=== PATIENT | female | born 1955 | race Caucasian/White ===

== ENCOUNTER 2022-06-24 13:12 | Inpatient (IN) | payer MEDICARE, OTHER ==
[2022-06-24 13:42] LABS: Actual Bicarbonate (HCO3v) 26 mEq/L (22-28); Base Excess 2.8 mEq/L (-2.0 to +3.0); Calcium, Ionized (venous) 0.86 mmol/L (1.16-1.32); Chloride (VBG) 93 mmol/L (98-106); Hemoglobin (Hb) 16.6 g/dL (11.7-16.1); Sodium 128.7 mmol/L (133-146); pH (venous) 7.48 (7.32-7.43)
[2022-06-24 13:45] LABS: #Lymphocytes 0.4 thou/uL (1.20-3.40); #Monocytes 0.2 thou/uL (0.11-0.59); #Neutrophils 3.3 thou/uL (1.40-6.50); %Eosinophils 0.2 % (0.0-10.0); %Lymphocytes 11.1 % (21.0-51.0); %Monocytes 5.7 % (0.0-10.0); Hemoglobin 15.8 g/dL (12.0-16.0); Mean Corpuscular HGB CONC 33.8 g/dL (32.0-36.0); Mean Corpuscular Hemoglobin 31.2 pg (27.0-31.0); Mean Corpuscular Volume 92.2 fl (78.0-98.0); Platelet Count 450 10x3/uL (130-400); RBC Distribution Width 11.9 % (11.5-14.5); Red Blood Cell (RBC) Count 5.06 mill/uL (4.20-5.40); White Blood Cell (WBC) Count 3.9 10x3/uL (4.8-10.8)
[2022-06-24 13:45] LABS: Potassium (VBG) 2.48 mmol/L (3.70-5.30)
[2022-06-24 13:48] LABS: BHCG - Serum Negative (NEGATIVE); Pregs Control Background? CLEAR/WHITE (CLR/WHITE); Pregs Control Bar Appear? YES (CONTROL BAR)
[2022-06-24 14:04] LABS: ALT (SGPT) 15 U/L (8-55); AST (SGOT) 19 U/L (5-34); Albumin 3.5 g/dL (3.4-4.8); Alkaline Phosphatase 92 U/L (40-110); Anion Gap 18 mmol/L (10-20); BUN (Urea Nitrogen) 6 mg/dL (9.8-20.1); Bilirubin, Total 0.4 mg/dL (0.2-1.2); Calc. Creatinine Clearance 0 mL/min (70-130); Calcium 8.7 mg/dL (7.8-10.44); Carbon Dioxide 26 mmol/L (23-31); Chloride 91 mmol/L (98-107); Estimated GFR 37; Glucose 182 mg/dL (80-115); Lipase 31 U/L (8-78); Magnesium 2.1 mg/dL (1.6-2.6); Protein, Total 6.5 g/dL (5.8-8.1); Sodium 132 mmol/L (136-145)
[2022-06-24 14:29] LABS: Potassium 2.5 mmol/L (3.5-5.1)
[2022-06-24] MEDS ORDERED: CALCIUM GLUC 1 GM/NS 50 ML BAG ONE (14:29)
[2022-06-24] MEDS ORDERED: Potassium Chloride 20 MEQ TAB ONE (14:29)
[2022-06-24] MEDS ORDERED: Morphine 4 MG/ML VIAL ONE (14:29)
[2022-06-24] MEDS ORDERED: Magnesium 2 GM/50 ML BAG (IN WATER) ONE (14:29)
[2022-06-24] MEDS ORDERED: Ondansetron PF 4 MG/2 ML Vial ONE (14:29)
[2022-06-24] MEDS ORDERED: Piperacillin/Tazobactam 4.5 GM VIAL ONE (14:29)
[2022-06-24] MEDS ORDERED: Acetaminophen 500 MG TAB ONE (14:29)
[2022-06-24] MEDS ORDERED: Potassium Chloride 20 MEQ/100 ML PREMIX BAG ONE (14:29)
[2022-06-24] MEDS ORDERED: Calcium Gluc 4.6 MEQ/10 ML (100 MG/ML) ONE (14:31)
[2022-06-24] MEDS ORDERED: Fentanyl 250 MCG/5 ML VIAL ONE (15:01)
[2022-06-24] MEDS ORDERED: Midazolam HCl 2 mg/2 ml Vial ONE (15:01)
[2022-06-24] MEDS ORDERED: Lidocaine 1% MPF 2 ML VIAL ONE (15:25)
[2022-06-24] MEDS ORDERED: Lidocaine 1% PF 5 ML VIAL ONE (15:40)
[2022-06-24] MEDS ORDERED: Rocuronium Bromide 10 MG/ML (10ML VIAL) ONE (15:40)
[2022-06-24] MEDS ORDERED: PHENYLEPHRINE-NS 100 MCG/ML 10 ML SYRINGE ONE ×2 (15:40→17:27)
[2022-06-24] MEDS ORDERED: Calcium Chloride 1 GM/10 ML Abboject SYRINGE ONE ×2 (15:40→17:24)
[2022-06-24] MEDS ORDERED: Albumin 5% 500 ML ONE (15:41)
[2022-06-24] MEDS ORDERED: Sevoflurane 250 ML INH ANEST BOTTLE ONE ×2 (15:48→21:51)
[2022-06-24] MEDS ORDERED: SUGAMMADEX SODIUM 200 MG/2 ML VIAL ONE (15:48)
[2022-06-24] MEDS ORDERED: Sodium Bicarb 50 MEQ/50 ML VIAL ONE (16:00)
[2022-06-24] MEDS ORDERED: Phenylephrine 10 MG/ML VIAL ONE (17:27)
[2022-06-24] MEDS ORDERED: NOREPINEPHRINE 8 MG/250 ML-D5W 250 ML ONE (18:18)
[2022-06-24 18:36] LABS: Base Excess (BEa) -3.9 mEq/L (-2.0 to +3.0); CO2 Tension 37.1 mmHg (35.0-45.0); Calcium, Ionized (arterial) 1.26 mmol/L (1.12-1.30); Carboxyhemoglobin (COHb) 1.1 gm% (0.0-3.0); Hemoglobin (Hb) 8.8 g/dL (12.0-16.0); O2 Tension (PaO2), arterial 78.7 mmHg (> 80.0); Potassium - ABG Lab 2.77 mmol/L (3.70-5.30); pH, Arterial 7.37 (7.35-7.45)
[2022-06-24 18:39] LABS: ALV-art Gradient 302.725 mmHg (0-20); Puncture Site LINE
[2022-06-24] MEDS ORDERED: Dextrose 5% in Water 1,000 ML IV PRN (18:40)
[2022-06-24] MEDS ORDERED: Dextrose 50% Abboject 50 ML SYRINGE SLOW IVP PRN (18:40)
[2022-06-24] MEDS ORDERED: Ipratropium/Albuterol 3 ML NEB NEB PRN (18:40)
[2022-06-24] MEDS ORDERED: Ondansetron ODT 4 MG TAB PO PRN (18:40)
[2022-06-24] MEDS ORDERED: TETANUS, DIPHTHERIA TOX,ADULT (TDVAX) 0.5 ML VIAL IM ONE (18:40)
[2022-06-24] MEDS ORDERED: HumaLOG 300 UNITS/3 ML VIAL SC PRN (18:40)
[2022-06-24] MEDS ORDERED: Ondansetron PF 4 MG/2 ML Vial IVP PRN (18:40)
[2022-06-24] MEDS ORDERED: Promethazine HCl 25 MG/ML VIAL IM PRN (18:40)
[2022-06-24] MEDS ORDERED: Lorazepam 2 MG/ML VIAL SLOW IVP PRN (18:45)
[2022-06-24] MEDS ORDERED: DISCONTINUE PREVIOUS NARCOTIC PAIN MEDICATIONS AND BENZODIAZEPINES FS SCH (18:45)
[2022-06-24] MEDS ORDERED: Propofol 1,000 MG/100 ML VIAL IV PRN (18:45)
[2022-06-24] MEDS ORDERED: Morphine 2 MG/ML VIAL SLOW IVP PRN (18:45)
[2022-06-24] MEDS ORDERED: Propofol BOLUS 1,000 MG/100 ML VIAL IV PRN (18:45)
[2022-06-24] MEDS ORDERED: Fentanyl BOLUS 250 ML IVPB PRN (18:45)
[2022-06-24] MEDS: Fentanyl CADD 100 ML IV SCH (18:47)
[2022-06-24] MEDS: Sodium Chloride 0.9% 1,000 ML IV SCH (18:47)
[2022-06-24] MEDS: NOREPINEPHRINE 8 MG/250 ML-D5W 250 ML IVPB SCH (18:48)
[2022-06-24] MEDS ORDERED: Piperacillin/Tazobactam 3.375 GM in Sodium Chloride 0.9% 100 ML IVPB SCH (19:00)
[2022-06-24 19:03] LABS: Lactic Acid 6.4 mmol/L (0.5-2.2)
[2022-06-24] MEDS ORDERED: Potassium Chloride 40 MEQ in Premix Bag 1 BAG IVPB SCH (20:15)
[2022-06-24] MEDS ORDERED: Famotidine/PF 20 mg/2ml Vial SLOW IVP SCH (21:00)
[2022-06-24] MEDS ORDERED: Sodium Chloride 0.9% 500 ML IV SCH (21:30)
[2022-06-24] MEDS ORDERED: Sterile Water 10 ML ONE (21:51)
[2022-06-24] MEDS ORDERED: Sodium Chloride 0.9% 500 ML IV PRN (22:00)
[2022-06-24 23:44] LABS: Lactic Acid 3.4 mmol/L (0.5-2.2)
[2022-06-25] MEDS: NOREPINEPHRINE 8 MG/250 ML-D5W 250 ML IVPB SCH ×7 (00:03→20:42)
[2022-06-25] MEDS: Piperacillin/Tazobactam 3.375 GM in Sodium Chloride 0.9% 100 ML IVPB SCH ×4 (00:03→23:03)
[2022-06-25 00:32] LABS: Hemoglobin 9.3 g/dL (12.0-16.0); Mean Corpuscular HGB CONC 33.2 g/dL (32.0-36.0); Mean Corpuscular Hemoglobin 29.3 pg (27.0-31.0); Mean Corpuscular Volume 88.2 fl (78.0-98.0); Mean Platelet Volume 8.3 fL (7.4-10.4); Platelet Count 211 10x3/uL (130-400); RBC Distribution Width 16.9 % (11.5-14.5); Red Blood Cell (RBC) Count 3.16 mill/uL (4.20-5.40); White Blood Cell (WBC) Count 3.6 10x3/uL (4.8-10.8)
[2022-06-25 00:55] LABS: Anion Gap 9 mmol/L (10-20); BUN (Urea Nitrogen) 10 mg/dL (9.8-20.1); Calc. Creatinine Clearance 61 mL/min (70-130); Carbon Dioxide 19 mmol/L (23-31); Chloride 111 mmol/L (98-107); Potassium 3.4 mmol/L (3.5-5.1); Sodium 136 mmol/L (136-145)
[2022-06-25 00:56] LABS: Calcium 7.5 mg/dL (7.8-10.44); Estimated GFR 53; Glucose 213 mg/dL (80-115); Magnesium 1.3 mg/dL (1.6-2.6); Phosphorus 1.6 mg/dL (2.3-4.7)
[2022-06-25] MEDS ORDERED: Electrolyte Replacement Protocol 1 EACH FS SCH (02:15)
[2022-06-25] MEDS: Lactated Ringer's 1,000 ML IV SCH ×2 (02:22→09:00)
[2022-06-25] MEDS ORDERED: Magnesium Sulfate In Water 4 GM in Premix Bag 1 BAG IVPB SCH (03:00)
[2022-06-25] MEDS ORDERED: Potassium Phosphate 15 MMOL in Sodium Chloride 0.9% 100 ML IVPB SCH (04:00)
[2022-06-25] MEDS ORDERED: Lactated Ringer's 500 ML IV SCH ×2 (04:30→06:00)
[2022-06-25] MEDS ORDERED: Potassium Chloride 20 MEQ in Premix Bag 1 BAG IVPB SCH (05:00)
[2022-06-25 05:06] LABS: Hemoglobin 9.6 g/dL (12.0-16.0); Mean Corpuscular HGB CONC 33.1 g/dL (32.0-36.0); Mean Corpuscular Hemoglobin 29.5 pg (27.0-31.0); Mean Corpuscular Volume 89.3 fl (78.0-98.0); Mean Platelet Volume 8.3 fL (7.4-10.4); Platelet Count 256 10x3/uL (130-400); RBC Distribution Width 16.7 % (11.5-14.5); Red Blood Cell (RBC) Count 3.25 mill/uL (4.20-5.40); White Blood Cell (WBC) Count 5.9 10x3/uL (4.8-10.8)
[2022-06-25 05:15] LABS: Anion Gap 11 mmol/L (10-20); BUN (Urea Nitrogen) 10 mg/dL (9.8-20.1); Calc. Creatinine Clearance 59 mL/min (70-130); Calcium 7.4 mg/dL (7.8-10.44); Carbon Dioxide 17 mmol/L (23-31); Chloride 110 mmol/L (98-107); Estimated GFR 51; Glucose 138 mg/dL (80-115); Potassium 3.4 mmol/L (3.5-5.1); Sodium 135 mmol/L (136-145)
[2022-06-25 06:08] LABS: Band 56 % (5-11); Lymphocytes 18 % (21-51); MDiff Complete? YES; Metamyelocyte 15 % (0-0); Monocytes 4 % (0-10); Neutrophil 7 % (42-75); Reflex for Review?? YES; Vacuoles SLIGHT
[2022-06-25] MEDS: Albumin 25% 25 GM/100 ML BOT IVPB SCH ×4 (06:24→23:03)
[2022-06-25 07:37] LABS: SARS-CoV-2 NAA Rapid Test Not Detected (NotDetected)
[2022-06-25 07:51] LABS: Actual Bicarbonate (HCO3a) 19.7 mEq/L (22-28); Base Excess (BEa) -5.7 mEq/L (-2.0 to +3.0); CO2 Tension 37.7 mmHg (35.0-45.0); Calcium, Ionized (arterial) 1.17 mmol/L (1.12-1.30); Carboxyhemoglobin (COHb) 0.1 gm% (0.0-3.0); Hemoglobin (Hb) 9.7 g/dL (12.0-16.0); Potassium - ABG Lab 3.67 mmol/L (3.70-5.30); pH, Arterial 7.34 (7.35-7.45)
[2022-06-25 07:53] LABS: Puncture Site Arterial Line
[2022-06-25 07:54] LABS: ALV-art Gradient 176.075 mmHg (0-20)
[2022-06-25] MEDS ORDERED: Midazolam In 0.9 % NaCl/PF 100 ML IVPB SCH (08:15)
[2022-06-25] MEDS: FLU VACC QS2022-23(65YR UP)/PF 240 MCG/0.7 ML SYRINGE IM ONE (08:23)
[2022-06-25] MEDS: Famotidine/PF 20 mg/2ml Vial SLOW IVP SCH ×2 (08:23→20:42)
[2022-06-25] MEDS: Sodium Chloride 0.9% 1,000 ML IV SCH ×3 (08:30→22:28)
[2022-06-25] MEDS ORDERED: Famotidine/PF 20 mg/2ml Vial SLOW IVP SCH (09:00)
[2022-06-25 09:18] LABS: Hemoglobin 7.7 g/dL (12.0-16.0); Mean Corpuscular HGB CONC 32.7 g/dL (32.0-36.0); Mean Corpuscular Hemoglobin 29.3 pg (27.0-31.0); Mean Corpuscular Volume 89.7 fl (78.0-98.0); Mean Platelet Volume 8.1 fL (7.4-10.4); Platelet Count 244 10x3/uL (130-400); RBC Distribution Width 16.8 % (11.5-14.5); Red Blood Cell (RBC) Count 2.62 mill/uL (4.20-5.40)
[2022-06-25 09:33] LABS: Potassium 3.6 mmol/L (3.5-5.1)
[2022-06-25] MEDS: Midazolam HCl 100 MG in Admixture Fee 1 EACH IVPB PRN (10:15)
[2022-06-25] MEDS: Sodium Chloride 0.45% 1,000 ML IV SCH ×3 (11:30→18:29)
[2022-06-25 15:05] LABS: Actual Bicarbonate (HCO3a) 23.6 mEq/L (22-28); Analyzer IN Cardio OR; Base Excess (BEa) -2.4 mEq/L (-2.0 to +3.0); CO2 Tension 46.9 mmHg (35.0-45.0); Calcium, Ionized (arterial) 1.15 mmol/L (1.12-1.30); Carboxyhemoglobin (COHb) 1.9 gm% (0.0-3.0); Hemoglobin (Hb) 7.9 g/dL (12.0-16.0); O2 Tension (PaO2), arterial 62.4 mmHg (> 80.0); Potassium - ABG Lab 2.96 mmol/L (3.70-5.30); pH, Arterial 7.32 (7.35-7.45)
[2022-06-25 15:05] LABS: Actual Bicarbonate (HCO3a) 23.2 mEq/L (22-28); Analyzer IN Cardio OR; Base Excess (BEa) -2.4 mEq/L (-2.0 to +3.0); Calcium, Ionized (arterial) 1.22 mmol/L (1.12-1.30); Hemoglobin (Hb) 10.1 g/dL (12.0-16.0); O2 Tension (PaO2), arterial 107.1 mmHg (> 80.0); pH, Arterial 7.35 (7.35-7.45)
[2022-06-25 15:06] LABS: Potassium - ABG Lab 2.24 mmol/L (3.70-5.30); Puncture Site Arterial Line
[2022-06-25 15:07] LABS: Puncture Site Arterial Line
[2022-06-25] MEDS ORDERED: Fentanyl CADD 100 ML ONE (21:23)
[2022-06-25] MEDS: Fentanyl CADD 100 ML IV SCH (21:25)
[2022-06-26] MEDS: Sodium Chloride 0.45% 1,000 ML IV SCH ×2 (01:39→08:16)
[2022-06-26 07:33] LABS: Actual Bicarbonate (HCO3a) 20.7 mEq/L (22-28); Base Excess (BEa) -3.3 mEq/L (-2.0 to +3.0); CO2 Tension 32.1 mmHg (35.0-45.0); Calcium, Ionized (arterial) 1.05 mmol/L (1.12-1.30); Carboxyhemoglobin (COHb) 0.4 gm% (0.0-3.0); Hemoglobin (Hb) 6.6 g/dL (12.0-16.0); O2 Tension (PaO2), arterial 79.6 mmHg (> 80.0); Potassium - ABG Lab 3.49 mmol/L (3.70-5.30); pH, Arterial 7.43 (7.35-7.45)
[2022-06-26 07:34] LABS: ALV-art Gradient 165.475 mmHg (0-20); Puncture Site Arterial Line
[2022-06-26] MEDS: Famotidine/PF 20 mg/2ml Vial SLOW IVP SCH ×2 (08:15→20:55)
[2022-06-26] MEDS ORDERED: Hydrocortisone Sod Succ/PF 100 mg/2 ml Vial IVP SCH (08:15)
[2022-06-26] MEDS: Piperacillin/Tazobactam 3.375 GM in Sodium Chloride 0.9% 100 ML IVPB SCH ×3 (08:15→23:05)
[2022-06-26 08:38] LABS: Hemoglobin 6.6 g/dL (12.0-16.0); Mean Corpuscular HGB CONC 32.6 g/dL (32.0-36.0); Mean Corpuscular Hemoglobin 28.9 pg (27.0-31.0); Mean Corpuscular Volume 88.5 fl (78.0-98.0); Mean Platelet Volume 8.2 fL (7.4-10.4); Platelet Count 206 10x3/uL (130-400); RBC Distribution Width 17.1 % (11.5-14.5); White Blood Cell (WBC) Count 13.1 10x3/uL (4.8-10.8)
[2022-06-26 08:52] LABS: Anion Gap 11 mmol/L (10-20); BUN (Urea Nitrogen) 9 mg/dL (9.8-20.1); Calc. Creatinine Clearance 83 mL/min (70-130); Calcium 7.5 mg/dL (7.8-10.44); Carbon Dioxide 19 mmol/L (23-31); Chloride 103 mmol/L (98-107); Estimated GFR 69; Glucose 62 mg/dL (80-115); Potassium 3.7 mmol/L (3.5-5.1); Sodium 129 mmol/L (136-145)
[2022-06-26 11:25] LABS: Band 59 % (5-11); Eosinophils 1 % (0-10); Lymphocytes 13 % (21-51); MDiff Complete? YES; Metamyelocyte 2 % (0-0); Monocytes 3 % (0-10); Neutrophil 22 % (42-75); Platelet Morphology Comment Appears Adequate; Polychromasia SLIGHT = 2-3 cells (100X) (0-2/hpf); Vacuoles SLIGHT
[2022-06-26 12:17] LABS: Hemoglobin 5.9 g/dL (12.0-16.0)
[2022-06-26] MEDS ORDERED: Electrolyte Replacement Protocol 1 EACH FS ONE (15:24)
[2022-06-26] MEDS ORDERED: Levothyroxine 100 MCG SDV IVP SCH (15:30)
[2022-06-26] MEDS ORDERED: Albumin 25% 25 GM/100 ML BOT IVPB SCH (16:00)
[2022-06-26] MEDS: Hydrocortisone Sod Succ/PF 100 mg/2 ml Vial IVP SCH (16:22)
[2022-06-26] MEDS ORDERED: Albumin 25% 100 ML ONE (16:23)
[2022-06-26 16:33] LABS: Lactic Acid 2.4 mmol/L (0.5-2.2)
[2022-06-26 16:47] LABS: Magnesium 1.8 mg/dL (1.6-2.6); Phosphorus 2.2 mg/dL (2.3-4.7)
[2022-06-26] MEDS ORDERED: Dextrose 5 % And 0.9 % NaCl 1,000 ML IV SCH (19:45)
[2022-06-26 19:46] LABS: Hemoglobin 8.2 g/dL (12.0-16.0)
[2022-06-27] MEDS: Hydrocortisone Sod Succ/PF 100 mg/2 ml Vial IVP SCH ×2 (03:06→15:30)
[2022-06-27] MEDS: NOREPINEPHRINE 8 MG/250 ML-D5W 250 ML IVPB SCH (03:25)
[2022-06-27 04:40] LABS: Hemoglobin 7.9 g/dL (12.0-16.0); Mean Corpuscular HGB CONC 33.1 g/dL (32.0-36.0); Mean Corpuscular Hemoglobin 28.2 pg (27.0-31.0); Mean Corpuscular Volume 85.2 fl (78.0-98.0); Mean Platelet Volume 9.2 fL (7.4-10.4); Platelet Count 148 10x3/uL (130-400); Red Blood Cell (RBC) Count 2.79 mill/uL (4.20-5.40); White Blood Cell (WBC) Count 19.3 10x3/uL (4.8-10.8)
[2022-06-27 05:05] LABS: ALT (SGPT) 26 U/L (8-55); AST (SGOT) 26 U/L (5-34); Alkaline Phosphatase 64 U/L (40-110); Anion Gap 13 mmol/L (10-20); BUN (Urea Nitrogen) 7 mg/dL (9.8-20.1); Bilirubin, Total 0.7 mg/dL (0.2-1.2); Calc. Creatinine Clearance 102 mL/min (70-130); Calcium 7.4 mg/dL (7.8-10.44); Carbon Dioxide 15 mmol/L (23-31); Chloride 105 mmol/L (98-107); Estimated GFR 82; Globulin 1.4 g/dL (2.4-3.5); Glucose 159 mg/dL (80-115); Magnesium 1.9 mg/dL (1.6-2.6); Potassium 3.5 mmol/L (3.5-5.1); Protein, Total 4.4 g/dL (5.8-8.1); Sodium 129 mmol/L (136-145)
[2022-06-27 05:31] LABS: Band 31 % (5-11); Lymphocytes 4 % (21-51); MDiff Complete? YES; Monocytes 2 % (0-10); Neutrophil 63 % (42-75)
[2022-06-27 05:51] LABS: Lactic Acid 2.2 mmol/L (0.5-2.2)
[2022-06-27] MEDS ORDERED: Electrolyte Replacement Protocol FS PRN (06:30)
[2022-06-27] MEDS ORDERED: Magnesium 2 GM/50 ML(in water) 2 GM in Premix Bag 1 BAG IVPB SCH (06:45)
[2022-06-27 06:57] LABS: Actual Bicarbonate (HCO3a) 21.4 mEq/L (22-28); Base Excess (BEa) -2.8 mEq/L (-2.0 to +3.0); CO2 Tension 35.2 mmHg (35.0-45.0); Calcium, Ionized (arterial) 1.09 mmol/L (1.12-1.30); Carboxyhemoglobin (COHb) 0.3 gm% (0.0-3.0); Hemoglobin (Hb) 11.8 g/dL (12.0-16.0); Potassium - ABG Lab 3.48 mmol/L (3.70-5.30)
[2022-06-27 07:08] LABS: O2 Tension (PaO2), arterial 67.5 mmHg (> 80.0); Puncture Site Arterial Line
[2022-06-27] MEDS ORDERED: Calcium Chloride 13.6 MEQ in Sodium Chloride 0.9% 100 ML IVPB SCH (08:15)
[2022-06-27] MEDS ORDERED: Meropenem 1 GM in Sodium Chloride 0.9% 100 ML IVPB SCH ×2 (08:30→14:00)
[2022-06-27] MEDS: Famotidine/PF 20 mg/2ml Vial SLOW IVP SCH ×2 (08:51→20:32)
[2022-06-27] MEDS: Furosemide 20 MG/2 ML VIAL SLOW IVP SCH ×2 (08:54→20:32)
[2022-06-27] MEDS: PHOS-NAK 1 PKT PACK PER TUBE SCH ×2 (08:54→16:25)
[2022-06-27] MEDS: Piperacillin/Tazobactam 3.375 GM in Sodium Chloride 0.9% 100 ML IVPB SCH (08:59)
[2022-06-27] MEDS: Potassium Chloride 20 MEQ in Premix Bag 1 BAG IVPB SCH ×2 (09:16→09:43)
[2022-06-27] MEDS: Vancomycin HCl 125 MG/5 ML (BATCHED) UDCUP PO SCH ×3 (09:16→20:32)
[2022-06-27] MEDS: Ipratropium/Albuterol 3 ML NEB NEB SCH ×4 (10:20→21:45)
[2022-06-27] MEDS ORDERED: Levothyroxine 100 MCG SDV IVP SCH (13:00)
[2022-06-27] MEDS ORDERED: Sodium Bicarbonate 100 MEQ in Sodium Chloride 0.45% 1,000 ML IV SCH (13:00)
[2022-06-27] MEDS: Midazolam HCl 100 MG in Admixture Fee 1 EACH IVPB PRN (14:24)
[2022-06-27] MEDS ORDERED: Fentanyl CADD 100 ML ONE (15:32)
[2022-06-27] MEDS: Fentanyl CADD 100 ML IV SCH (16:27)
[2022-06-27 16:38] LABS: Potassium 3.5 mmol/L (3.5-5.1)
[2022-06-27] MEDS: Meropenem 1 GM in Sodium Chloride 0.9% 100 ML IVPB SCH (18:48)
[2022-06-28] MEDS: Ipratropium/Albuterol 3 ML NEB NEB SCH ×7 (01:33→22:36)
[2022-06-28] MEDS: Meropenem 1 GM in Sodium Chloride 0.9% 100 ML IVPB SCH ×3 (01:42→18:25)
[2022-06-28] MEDS: Hydrocortisone Sod Succ/PF 100 mg/2 ml Vial IVP SCH ×2 (03:03→14:49)
[2022-06-28] MEDS: Vancomycin HCl 125 MG/5 ML (BATCHED) UDCUP PO SCH ×4 (03:04→20:12)
[2022-06-28 05:07] LABS: ALT (SGPT) 41 U/L (8-55); AST (SGOT) 34 U/L (5-34); Albumin 2.6 g/dL (3.4-4.8); Alkaline Phosphatase 89 U/L (40-110); Anion Gap 9 mmol/L (10-20); BUN (Urea Nitrogen) 10 mg/dL (9.8-20.1); Bilirubin, Total 0.6 mg/dL (0.2-1.2); Calc. Creatinine Clearance 97 mL/min (70-130); Carbon Dioxide 23 mmol/L (23-31); Chloride 104 mmol/L (98-107); Estimated GFR 82; Globulin 1.7 g/dL (2.4-3.5); Glucose 90 mg/dL (80-115); Magnesium 1.7 mg/dL (1.6-2.6); Phosphorus 2.8 mg/dL (2.3-4.7); Potassium 3.1 mmol/L (3.5-5.1); Protein, Total 4.3 g/dL (5.8-8.1); Sodium 133 mmol/L (136-145)
[2022-06-28] MEDS ORDERED: Magnesium 2 GM/50 ML(in water) 2 GM in Premix Bag 1 BAG IVPB SCH (06:45)
[2022-06-28 07:08] LABS: Actual Bicarbonate (HCO3a) 25.8 mEq/L (22-28); Base Excess (BEa) 2.1 mEq/L (-2.0 to +3.0); CO2 Tension 36.3 mmHg (35.0-45.0); Carboxyhemoglobin (COHb) 0.3 gm% (0.0-3.0); Hemoglobin (Hb) 8.3 g/dL (12.0-16.0); Potassium - ABG Lab 2.99 mmol/L (3.70-5.30); pH, Arterial 7.47 (7.35-7.45)
[2022-06-28 07:15] LABS: ALV-art Gradient 181.925 mmHg (0-20); Puncture Site LRA
[2022-06-28] MEDS ORDERED: Levothyroxine 100 MCG SDV IVP SCH (08:45)
[2022-06-28] MEDS: Pantoprazole 40 MG VIAL IVP SCH (09:55)
[2022-06-28] MEDS: Furosemide 20 MG/2 ML VIAL SLOW IVP SCH ×2 (09:57→20:12)
[2022-06-28] MEDS: Potassium Chloride 20 MEQ in Premix Bag 1 BAG IVPB SCH ×4 (10:09→21:46)
[2022-06-28] MEDS: Heparin 5,000 UNITS/ML VIAL SC SCH ×2 (13:43→21:47)
[2022-06-28 15:48] LABS: Potassium 3.3 mmol/L (3.5-5.1)
[2022-06-28] MEDS ORDERED: Albuterol 2.5 MG/0.5 ML NEB ONE (15:50)
[2022-06-28] MEDS ORDERED: Ipratropium Bromide 2.5 ml Neb ONE (15:51)
[2022-06-28] MEDS: Fentanyl CADD 100 ML IV SCH (22:05)
[2022-06-29] MEDS: Meropenem 1 GM in Sodium Chloride 0.9% 100 ML IVPB SCH ×3 (00:59→17:39)
[2022-06-29] MEDS: Ipratropium/Albuterol 3 ML NEB NEB SCH ×5 (02:35→21:49)
[2022-06-29] MEDS: Vancomycin HCl 125 MG/5 ML (BATCHED) UDCUP PO SCH (02:39)
[2022-06-29] MEDS: Hydrocortisone Sod Succ/PF 100 mg/2 ml Vial IVP SCH ×2 (02:39→17:31)
[2022-06-29] MEDS: Heparin 5,000 UNITS/ML VIAL SC SCH ×3 (05:16→21:04)
[2022-06-29 06:49] LABS: ALT (SGPT) 33 U/L (8-55); AST (SGOT) 27 U/L (5-34); Albumin 2.5 g/dL (3.4-4.8); Alkaline Phosphatase 101 U/L (40-110); Anion Gap 14 mmol/L (10-20); BUN (Urea Nitrogen) 13 mg/dL (9.8-20.1); Bilirubin, Total 0.4 mg/dL (0.2-1.2); Calc. Creatinine Clearance 102 mL/min (70-130); Calcium 8.1 mg/dL (7.8-10.44); Carbon Dioxide 24 mmol/L (23-31); Chloride 104 mmol/L (98-107); Estimated GFR 91; Globulin 2.1 g/dL (2.4-3.5); Glucose 92 mg/dL (80-115); Magnesium 1.9 mg/dL (1.6-2.6); Phosphorus 2.7 mg/dL (2.3-4.7); Potassium 3.5 mmol/L (3.5-5.1); Protein, Total 4.6 g/dL (5.8-8.1); Sodium 138 mmol/L (136-145)
[2022-06-29 07:01] LABS: Actual Bicarbonate (HCO3a) 26.1 mEq/L (22-28); Base Excess (BEa) 2.4 mEq/L (-2.0 to +3.0); CO2 Tension 36.9 mmHg (35.0-45.0); Carboxyhemoglobin (COHb) 0.6 gm% (0.0-3.0); Hemoglobin (Hb) 8.6 g/dL (12.0-16.0); Potassium - ABG Lab 3.47 mmol/L (3.70-5.30); pH, Arterial 7.47 (7.35-7.45)
[2022-06-29 07:32] LABS: ALV-art Gradient 181.475 mmHg (0-20); Puncture Site LRA
[2022-06-29] MEDS ORDERED: Magnesium 2 GM/50 ML(in water) 2 GM in Premix Bag 1 BAG IVPB SCH (08:00)
[2022-06-29] MEDS ORDERED: Meningococcal Vaccine 0.5ML VIAL (MENACTRA) IM ONE (09:45)
[2022-06-29] MEDS ORDERED: Meropenem 1 GM VIAL ONE (09:51)
[2022-06-29] MEDS: Pantoprazole 40 MG VIAL IVP SCH (09:53)
[2022-06-29] MEDS: Furosemide 40 MG/4 ML VIAL SLOW IVP SCH ×2 (09:53→20:04)
[2022-06-29] MEDS: Potassium Chloride 20 MEQ in Premix Bag 1 BAG IVPB SCH ×4 (09:54→19:42)
[2022-06-29 11:27] LABS: Hemoglobin 8.6 g/dL (12.0-16.0); Mean Corpuscular HGB CONC 33.5 g/dL (32.0-36.0); Mean Corpuscular Volume 86.6 fl (78.0-98.0); Mean Platelet Volume 9.5 fL (7.4-10.4); Platelet Count 197 10x3/uL (130-400); RBC Distribution Width 15.7 % (11.5-14.5); Red Blood Cell (RBC) Count 2.95 mill/uL (4.20-5.40); White Blood Cell (WBC) Count 23.5 10x3/uL (4.8-10.8)
[2022-06-29 11:42] LABS: Band 13 % (5-11); Lymphocytes 4 % (21-51); MDiff Complete? YES; Monocytes 3 % (0-10); Neutrophil 80 % (42-75); Nucleated RBC 1 % (0); Platelet Morphology Comment Appears Adequate; Polychromasia SLIGHT = 2-3 cells (100X) (0-2/hpf)
[2022-06-29] MEDS ORDERED: Micafungin 100 MG in Sodium Chloride 0.9% 100 ML IVPB SCH (14:00)
[2022-06-29 17:23] LABS: Potassium 3.5 mmol/L (3.5-5.1)
[2022-06-29] MEDS: Micafungin 100 MG in Sodium Chloride 0.9% 100 ML IVPB SCH (17:50)
[2022-06-30] MEDS: Ipratropium/Albuterol 3 ML NEB NEB SCH ×6 (01:35→21:24)
[2022-06-30] MEDS: Meropenem 1 GM in Sodium Chloride 0.9% 100 ML IVPB SCH ×3 (02:59→17:13)
[2022-06-30] MEDS: Hydrocortisone Sod Succ/PF 100 mg/2 ml Vial IVP SCH ×2 (03:59→16:59)
[2022-06-30 04:45] LABS: ALT (SGPT) 32 U/L (8-55); AST (SGOT) 30 U/L (5-34); Albumin 2.6 g/dL (3.4-4.8); Alkaline Phosphatase 100 U/L (40-110); Anion Gap 12 mmol/L (10-20); BUN (Urea Nitrogen) 20 mg/dL (9.8-20.1); Band 14 % (5-11); Bilirubin, Total 0.4 mg/dL (0.2-1.2); Calc. Creatinine Clearance 107 mL/min (70-130); Calcium 8.2 mg/dL (7.8-10.44); Carbon Dioxide 29 mmol/L (23-31); Chloride 103 mmol/L (98-107); Estimated GFR 95; Globulin 2.4 g/dL (2.4-3.5); Glucose 100 mg/dL (80-115); Hemoglobin 8.3 g/dL (12.0-16.0); Hypochromia SLIGHT = 6-15 cells (100X) (0-5/hpf); Lymphocytes 11 % (21-51); MDiff Complete? YES; Mean Corpuscular HGB CONC 33.1 g/dL (32.0-36.0); Mean Corpuscular Hemoglobin 28.5 pg (27.0-31.0); Mean Corpuscular Volume 86.3 fl (78.0-98.0); Mean Platelet Volume 9.9 fL (7.4-10.4); Monocytes 11 % (0-10); Neutrophil 63 % (42-75); Phosphorus 2.9 mg/dL (2.3-4.7); Platelet Count 218 10x3/uL (130-400); Platelet Morphology Comment Appears Adequate; Potassium 3.6 mmol/L (3.5-5.1); RBC Distribution Width 15.7 % (11.5-14.5); Reactive Lymphocytes 1 % (0-10); Red Blood Cell (RBC) Count 2.92 mill/uL (4.20-5.40); Sodium 140 mmol/L (136-145); White Blood Cell (WBC) Count 18.4 10x3/uL (4.8-10.8)
[2022-06-30] MEDS: Fentanyl CADD 100 ML IV SCH (05:59)
[2022-06-30] MEDS: Heparin 5,000 UNITS/ML VIAL SC SCH ×3 (06:00→21:18)
[2022-06-30 07:23] LABS: Actual Bicarbonate (HCO3a) 29.7 mEq/L (22-28); CO2 Tension 39.8 mmHg (35.0-45.0); Calcium, Ionized (arterial) 1.11 mmol/L (1.12-1.30); Carboxyhemoglobin (COHb) 0.4 gm% (0.0-3.0); Hemoglobin (Hb) 12.7 g/dL (12.0-16.0); O2 Tension (PaO2), arterial 61.9 mmHg (> 80.0); Potassium - ABG Lab 3.71 mmol/L (3.70-5.30); pH, Arterial 7.49 (7.35-7.45)
[2022-06-30 07:35] LABS: Puncture Site LRA
[2022-06-30] MEDS ORDERED: Magnesium 2 GM/50 ML(in water) 2 GM in Premix Bag 1 BAG IVPB SCH (08:00)
[2022-06-30] MEDS: Furosemide 40 MG/4 ML VIAL SLOW IVP SCH ×2 (10:06→20:57)
[2022-06-30] MEDS: Pantoprazole 40 MG VIAL IVP SCH (10:07)
[2022-06-30] MEDS: Micafungin 100 MG in Sodium Chloride 0.9% 100 ML IVPB SCH (18:40)
[2022-07-01] MEDS: Meropenem 1 GM in Sodium Chloride 0.9% 100 ML IVPB SCH ×3 (01:12→17:58)
[2022-07-01] MEDS: Ipratropium/Albuterol 3 ML NEB NEB SCH ×6 (02:05→22:02)
[2022-07-01] MEDS: Hydrocortisone Sod Succ/PF 100 mg/2 ml Vial IVP SCH ×2 (03:09→15:06)
[2022-07-01 04:59] LABS: Anisocytosis SLIGHT = 6-15 cells (100X) (0-5/hpf); Band 3 % (5-11); Hemoglobin 8.9 g/dL (12.0-16.0); Lymphocytes 9 % (21-51); MDiff Complete? YES; Mean Corpuscular HGB CONC 32.4 g/dL (32.0-36.0); Mean Corpuscular Hemoglobin 28.3 pg (27.0-31.0); Mean Corpuscular Volume 87.5 fl (78.0-98.0); Mean Platelet Volume 9.9 fL (7.4-10.4); Monocytes 3 % (0-10); Neutrophil 85 % (42-75); Platelet Count 287 10x3/uL (130-400); Platelet Morphology Comment Appears Adequate; RBC Distribution Width 15.7 % (11.5-14.5); Red Blood Cell (RBC) Count 3.14 mill/uL (4.20-5.40); White Blood Cell (WBC) Count 19.9 10x3/uL (4.8-10.8)
[2022-07-01 05:00] LABS: Anion Gap 10 mmol/L (10-20); BUN (Urea Nitrogen) 27 mg/dL (9.8-20.1); Calc. Creatinine Clearance 107 mL/min (70-130); Calcium 8.5 mg/dL (7.8-10.44); Carbon Dioxide 35 mmol/L (23-31); Chloride 101 mmol/L (98-107); Estimated GFR 95; Glucose 118 mg/dL (80-115); Potassium 3.3 mmol/L (3.5-5.1); Sodium 143 mmol/L (136-145)
[2022-07-01] MEDS: Heparin 5,000 UNITS/ML VIAL SC SCH ×3 (05:27→21:15)
[2022-07-01 07:51] LABS: Actual Bicarbonate (HCO3a) 34.3 mEq/L (22-28); Base Excess (BEa) 10.6 mEq/L (-2.0 to +3.0); Calcium, Ionized (arterial) 1.08 mmol/L (1.12-1.30); Carboxyhemoglobin (COHb) 0.7 gm% (0.0-3.0); Hemoglobin (Hb) 9.3 g/dL (12.0-16.0); O2 Tension (PaO2), arterial 66.1 mmHg (> 80.0); Potassium - ABG Lab 3.35 mmol/L (3.70-5.30); pH, Arterial 7.53 (7.35-7.45)
[2022-07-01 07:54] LABS: Puncture Site LRA
[2022-07-01] MEDS: acetaZOLAMIDE Sodium 500 mg Vial IVP SCH (08:00)
[2022-07-01] MEDS ORDERED: Potassium Chloride 40 MEQ in Premix Bag 1 BAG IVPB SCH (08:00)
[2022-07-01] MEDS: Pantoprazole 40 MG VIAL IVP SCH (08:00)
[2022-07-01 15:31] LABS: Potassium 3.3 mmol/L (3.5-5.1)
[2022-07-01] MEDS: Potassium Chloride 20 MEQ in Premix Bag 1 BAG IVPB SCH ×2 (15:55→19:10)
[2022-07-01] MEDS: Micafungin 100 MG in Sodium Chloride 0.9% 100 ML IVPB SCH (17:58)
[2022-07-01] MEDS: Fentanyl CADD 100 ML IV SCH (18:45)
[2022-07-02] MEDS: Meropenem 1 GM in Sodium Chloride 0.9% 100 ML IVPB SCH ×3 (01:18→17:55)
[2022-07-02 02:16] LABS: Potassium 3.7 mmol/L (3.5-5.1)
[2022-07-02] MEDS: Ipratropium/Albuterol 3 ML NEB NEB SCH ×7 (02:20→22:24)
[2022-07-02] MEDS: Hydrocortisone Sod Succ/PF 100 mg/2 ml Vial IVP SCH (03:04)
[2022-07-02 04:53] LABS: Anion Gap 11 mmol/L (10-20); BUN (Urea Nitrogen) 29 mg/dL (9.8-20.1); Calc. Creatinine Clearance 124 mL/min (70-130); Calcium 8.6 mg/dL (7.8-10.44); Carbon Dioxide 29 mmol/L (23-31); Chloride 108 mmol/L (98-107); Estimated GFR 99; Glucose 113 mg/dL (80-115); Potassium 3.5 mmol/L (3.5-5.1); Sodium 144 mmol/L (136-145)
[2022-07-02 04:56] LABS: Band 12 % (5-11); Hemoglobin 8.8 g/dL (12.0-16.0); Hypochromia SLIGHT = 6-15 cells (100X) (0-5/hpf); Lymphocytes 18 % (21-51); MDiff Complete? YES; Mean Corpuscular HGB CONC 32.3 g/dL (32.0-36.0); Mean Corpuscular Hemoglobin 28.7 pg (27.0-31.0); Mean Corpuscular Volume 88.8 fl (78.0-98.0); Mean Platelet Volume 9.6 fL (7.4-10.4); Monocytes 4 % (0-10); Neutrophil 66 % (42-75); Platelet Count 368 10x3/uL (130-400); Platelet Morphology Comment Appears Adequate; RBC Distribution Width 15.8 % (11.5-14.5); Red Blood Cell (RBC) Count 3.06 mill/uL (4.20-5.40); White Blood Cell (WBC) Count 20.2 10x3/uL (4.8-10.8)
[2022-07-02] MEDS: Heparin 5,000 UNITS/ML VIAL SC SCH ×3 (05:36→21:21)
[2022-07-02] MEDS: Potassium Chloride 20 MEQ in Premix Bag 1 BAG IVPB SCH ×2 (06:20→08:19)
[2022-07-02] MEDS: Pantoprazole 40 MG VIAL IVP SCH (08:18)
[2022-07-02] MEDS: acetaZOLAMIDE Sodium 500 mg Vial IVP SCH (08:18)
[2022-07-02 11:10] LABS: O2 Tension (PaO2), arterial 57.9 mmHg (> 80.0)
[2022-07-02 11:14] LABS: O2 Tension (PaO2), arterial 57.6 mmHg (> 80.0)
[2022-07-02 15:57] LABS: Potassium 3.5 mmol/L (3.5-5.1)
[2022-07-02] MEDS: Micafungin 100 MG in Sodium Chloride 0.9% 100 ML IVPB SCH (17:55)
[2022-07-03] MEDS ORDERED: Labetalol HCl 100 MG/20 ML VIAL SLOW IVP PRN (00:13)
[2022-07-03] MEDS ORDERED: Fentanyl CADD 100 ML ONE (01:10)
[2022-07-03] MEDS: Fentanyl CADD 100 ML IV SCH (01:14)
[2022-07-03] MEDS: Meropenem 1 GM in Sodium Chloride 0.9% 100 ML IVPB SCH ×3 (01:21→17:11)
[2022-07-03] MEDS: Ipratropium/Albuterol 3 ML NEB NEB SCH ×6 (02:09→22:09)
[2022-07-03 04:58] LABS: Anion Gap 10 mmol/L (10-20); BUN (Urea Nitrogen) 27 mg/dL (9.8-20.1); Calc. Creatinine Clearance 129 mL/min (70-130); Calcium 8.9 mg/dL (7.8-10.44); Carbon Dioxide 26 mmol/L (23-31); Chloride 112 mmol/L (98-107); Estimated GFR 100; Glucose 106 mg/dL (80-115); Potassium 3.2 mmol/L (3.5-5.1); Sodium 145 mmol/L (136-145)
[2022-07-03 05:01] LABS: Anisocytosis SLIGHT = 6-15 cells (100X) (0-5/hpf); Band 2 % (5-11); Eosinophils 3 % (0-10); Hemoglobin 8.9 g/dL (12.0-16.0); Hypochromia SLIGHT = 6-15 cells (100X) (0-5/hpf); Large Platelets SLIGHT; Lymphocytes 14 % (21-51); MDiff Complete? YES; Mean Corpuscular HGB CONC 31.8 g/dL (32.0-36.0); Mean Corpuscular Hemoglobin 28.6 pg (27.0-31.0); Mean Corpuscular Volume 89.9 fl (78.0-98.0); Mean Platelet Volume 9.2 fL (7.4-10.4); Monocytes 7 % (0-10); Neutrophil 74 % (42-75); Platelet Count 461 10x3/uL (130-400); Platelet Morphology Comment Appears Increased; Polychromasia SLIGHT = 2-3 cells (100X) (0-2/hpf); RBC Distribution Width 15.7 % (11.5-14.5); Red Blood Cell (RBC) Count 3.11 mill/uL (4.20-5.40); Target Cells SLIGHT = 2-5 cells (100X) (0-1/hpf); White Blood Cell (WBC) Count 19.6 10x3/uL (4.8-10.8)
[2022-07-03] MEDS: Heparin 5,000 UNITS/ML VIAL SC SCH ×3 (06:09→22:48)
[2022-07-03] MEDS: Potassium Chloride 20 MEQ in Premix Bag 1 BAG IVPB SCH ×2 (06:45→08:35)
[2022-07-03] MEDS: Pantoprazole 40 MG VIAL IVP SCH (08:35)
[2022-07-03] MEDS ORDERED: Haemoph B Poly Conj-Tet Tox/PF 10 MCG/0.5 ML VIAL IM ONE (09:30)
[2022-07-03] MEDS: PNEUMOC 20-VAL CONJ-DIP CRM/PF 0.5 ML SYRINGE IM ONE (14:48)
[2022-07-03 16:18] LABS: Potassium 3.7 mmol/L (3.5-5.1)
[2022-07-03] MEDS: Micafungin 100 MG in Sodium Chloride 0.9% 100 ML IVPB SCH (17:11)
[2022-07-04] MEDS: Ipratropium/Albuterol 3 ML NEB NEB SCH ×6 (02:24→22:23)
[2022-07-04] MEDS: Meropenem 1 GM in Sodium Chloride 0.9% 100 ML IVPB SCH ×3 (02:25→18:27)
[2022-07-04 05:20] LABS: Anion Gap 10 mmol/L (10-20); BUN (Urea Nitrogen) 18 mg/dL (9.8-20.1); Calc. Creatinine Clearance 128 mL/min (70-130); Calcium 8.4 mg/dL (7.8-10.44); Carbon Dioxide 24 mmol/L (23-31); Chloride 114 mmol/L (98-107); Estimated GFR 101; Glucose 92 mg/dL (80-115); Potassium 3.5 mmol/L (3.5-5.1); Sodium 144 mmol/L (136-145)
[2022-07-04 05:27] LABS: Hemoglobin 7.9 g/dL (12.0-16.0); Mean Corpuscular HGB CONC 32.6 g/dL (32.0-36.0); Mean Corpuscular Hemoglobin 29.2 pg (27.0-31.0); Mean Corpuscular Volume 89.7 fl (78.0-98.0); Mean Platelet Volume 9.2 fL (7.4-10.4); Platelet Count 479 10x3/uL (130-400); RBC Distribution Width 15.8 % (11.5-14.5); Red Blood Cell (RBC) Count 2.71 mill/uL (4.20-5.40); White Blood Cell (WBC) Count 17.3 10x3/uL (4.8-10.8)
[2022-07-04 05:28] LABS: Band 5 % (5-11); Eosinophils 1 % (0-10); Hypochromia SLIGHT = 6-15 cells (100X) (0-5/hpf); Lymphocytes 17 % (21-51); MDiff Complete? YES; Monocytes 7 % (0-10); Neutrophil 70 % (42-75); Platelet Morphology Comment Appears Increased
[2022-07-04] MEDS: Heparin 5,000 UNITS/ML VIAL SC SCH ×3 (06:23→22:34)
[2022-07-04] MEDS: Potassium Chloride 20 MEQ in Premix Bag 1 BAG IVPB SCH ×2 (07:01→09:52)
[2022-07-04] MEDS ORDERED: Fentanyl CADD 100 ML ONE (08:26)
[2022-07-04] MEDS: Fentanyl CADD 100 ML IV SCH (09:04)
[2022-07-04] MEDS: Pantoprazole 40 MG VIAL IVP SCH (09:14)
[2022-07-04] MEDS: Micafungin 100 MG in Sodium Chloride 0.9% 100 ML IVPB SCH (18:27)
[2022-07-05] MEDS: Ipratropium/Albuterol 3 ML NEB NEB SCH ×6 (02:49→21:49)
[2022-07-05 05:02] LABS: Anion Gap 11 mmol/L (10-20); BUN (Urea Nitrogen) 14 mg/dL (9.8-20.1); Calc. Creatinine Clearance 122 mL/min (70-130); Calcium 8.8 mg/dL (7.8-10.44); Carbon Dioxide 25 mmol/L (23-31); Chloride 110 mmol/L (98-107); Estimated GFR 101; Glucose 104 mg/dL (80-115); Potassium 3.6 mmol/L (3.5-5.1); Sodium 142 mmol/L (136-145)
[2022-07-05 05:08] LABS: Anisocytosis SLIGHT = 6-15 cells (100X) (0-5/hpf); Band 2 % (5-11); Eosinophils 1 % (0-10); Hemoglobin 8.2 g/dL (12.0-16.0); Hypochromia SLIGHT = 6-15 cells (100X) (0-5/hpf); Lymphocytes 10 % (21-51); MDiff Complete? YES; Mean Corpuscular HGB CONC 31.1 g/dL (32.0-36.0); Mean Corpuscular Hemoglobin 27.8 pg (27.0-31.0); Mean Corpuscular Volume 89.2 fl (78.0-98.0); Mean Platelet Volume 9.6 fL (7.4-10.4); Monocytes 9 % (0-10); Neutrophil 78 % (42-75); Platelet Count 580 10x3/uL (130-400); Platelet Morphology Comment Appears Increased; Polychromasia SLIGHT = 2-3 cells (100X) (0-2/hpf); Red Blood Cell (RBC) Count 2.94 mill/uL (4.20-5.40); White Blood Cell (WBC) Count 16.8 10x3/uL (4.8-10.8)
[2022-07-05] MEDS: Heparin 5,000 UNITS/ML VIAL SC SCH ×3 (05:53→21:59)
[2022-07-05] MEDS ORDERED: Lorazepam 2 MG/ML VIAL SLOW IVP PRN (07:12)
[2022-07-05] MEDS ORDERED: Fentanyl BOLUS 250 ML IVPB PRN (07:12)
[2022-07-05] MEDS ORDERED: Morphine 2 MG/ML VIAL SLOW IVP PRN (07:12)
[2022-07-05] MEDS ORDERED: Fentanyl CADD 100 ML IV SCH (07:15)
[2022-07-05] MEDS: Pantoprazole 40 MG VIAL IVP SCH (08:43)
[2022-07-05] MEDS: methylPREDNISolone Sod Succ 40 MG VIAL IVP SCH ×2 (14:59→18:31)
[2022-07-05] MEDS: FLU VACC QS2022-23(65YR UP)/PF 240 MCG/0.7 ML SYRINGE IM ONE (16:45)
[2022-07-05] MEDS: PNEUMOC 20-VAL CONJ-DIP CRM/PF 0.5 ML SYRINGE IM ONE (16:52)
[2022-07-05] MEDS: Micafungin 100 MG in Sodium Chloride 0.9% 100 ML IVPB SCH (18:30)
[2022-07-06] MEDS: methylPREDNISolone Sod Succ 40 MG VIAL IVP SCH ×3 (00:04→11:31)
[2022-07-06] MEDS: Ipratropium/Albuterol 3 ML NEB NEB SCH ×6 (02:28→23:08)
[2022-07-06 04:27] LABS: #Lymphocytes 0.8 thou/uL (1.20-3.40); #Monocytes 0.1 thou/uL (0.11-0.59); #Neutrophils 11.4 thou/uL (1.40-6.50); %Basophils 0.1 % (0.0-1.0); %Lymphocytes 6.1 % (21.0-51.0); %Monocytes 0.5 % (0.0-10.0); %Neutrophils 93.2 % (42.0-75.0); Hemoglobin 8.5 g/dL (12.0-16.0); Mean Corpuscular HGB CONC 32.9 g/dL (32.0-36.0); Mean Corpuscular Hemoglobin 29.2 pg (27.0-31.0); Mean Corpuscular Volume 88.8 fl (78.0-98.0); Mean Platelet Volume 9.2 fL (7.4-10.4); Platelet Count 656 10x3/uL (130-400); RBC Distribution Width 16.1 % (11.5-14.5); Red Blood Cell (RBC) Count 2.91 mill/uL (4.20-5.40); White Blood Cell (WBC) Count 12.2 10x3/uL (4.8-10.8)
[2022-07-06 04:44] LABS: Anion Gap 10 mmol/L (10-20); BUN (Urea Nitrogen) 16 mg/dL (9.8-20.1); Calc. Creatinine Clearance 112 mL/min (70-130); Carbon Dioxide 26 mmol/L (23-31); Chloride 107 mmol/L (98-107); Estimated GFR 99; Glucose 146 mg/dL (80-115); Potassium 4.1 mmol/L (3.5-5.1); Sodium 139 mmol/L (136-145)
[2022-07-06] MEDS: Heparin 5,000 UNITS/ML VIAL SC SCH ×3 (05:40→22:05)
[2022-07-06] MEDS: Pantoprazole 40 MG VIAL IVP SCH (10:34)
[2022-07-06] MEDS: Micafungin 100 MG in Sodium Chloride 0.9% 100 ML IVPB SCH (18:10)
[2022-07-07] MEDS: Ipratropium/Albuterol 3 ML NEB NEB SCH ×2 (02:04→07:17)
[2022-07-07 05:15] LABS: #Lymphocytes 2.4 thou/uL (1.20-3.40); #Monocytes 1.6 thou/uL (0.11-0.59); #Neutrophils 12.9 thou/uL (1.40-6.50); %Basophils 0.3 % (0.0-1.0); %Eosinophils 0.1 % (0.0-10.0); %Lymphocytes 14.2 % (21.0-51.0); %Monocytes 9.4 % (0.0-10.0); Hemoglobin 7.6 g/dL (12.0-16.0); Mean Corpuscular HGB CONC 32.8 g/dL (32.0-36.0); Mean Corpuscular Hemoglobin 29.1 pg (27.0-31.0); Mean Corpuscular Volume 88.8 fl (78.0-98.0); Mean Platelet Volume 9.7 fL (7.4-10.4); Platelet Count 626 10x3/uL (130-400); RBC Distribution Width 16.4 % (11.5-14.5); Red Blood Cell (RBC) Count 2.61 mill/uL (4.20-5.40)
[2022-07-07] MEDS: Heparin 5,000 UNITS/ML VIAL SC SCH ×3 (05:21→21:55)
[2022-07-07 05:26] LABS: Anion Gap 11 mmol/L (10-20); BUN (Urea Nitrogen) 19 mg/dL (9.8-20.1); Calc. Creatinine Clearance 0 mL/min (70-130); Calcium 8.6 mg/dL (7.8-10.44); Carbon Dioxide 24 mmol/L (23-31); Chloride 110 mmol/L (98-107); Estimated GFR 99; Glucose 94 mg/dL (80-115); Potassium 3.4 mmol/L (3.5-5.1); Sodium 142 mmol/L (136-145)
[2022-07-07] MEDS: Pantoprazole 40 MG VIAL IVP SCH (09:15)
[2022-07-07] MEDS: Potassium Chloride 20 MEQ in Premix Bag 1 BAG IVPB SCH ×2 (10:00→10:04)
[2022-07-07] MEDS: Ketorolac Tromethamine 30 MG/ML VIAL IVP PRN (18:44)
[2022-07-07] MEDS ORDERED: Haemoph B Poly Conj-Tet Tox/PF 10 MCG/0.5 ML VIAL IM ONE (18:45)
[2022-07-07 20:04] LABS: Glucose 112 mg/dL (80-115); Potassium 3.9 mmol/L (3.5-5.1)
[2022-07-07] MEDS ORDERED: Dextrose 5% in Water 1,000 ML IV SCH (22:45)
[2022-07-08] MEDS: Dextrose 5% in Water 1,000 ML IV SCH ×3 (01:15→17:13)
[2022-07-08] MEDS: Ketorolac Tromethamine 30 MG/ML VIAL IVP PRN ×4 (04:36→23:45)
[2022-07-08 04:41] LABS: Anion Gap 10 mmol/L (10-20); BUN (Urea Nitrogen) 19 mg/dL (9.8-20.1); Calc. Creatinine Clearance 102 mL/min (70-130); Calcium 8.5 mg/dL (7.8-10.44); Carbon Dioxide 25 mmol/L (23-31); Chloride 109 mmol/L (98-107); Estimated GFR 97; Glucose 113 mg/dL (80-115); Potassium 3.7 mmol/L (3.5-5.1); Sodium 140 mmol/L (136-145)
[2022-07-08 04:50] LABS: #Eosinphils 0.1 thou/uL (0.0-0.7); #Lymphocytes 2.1 thou/uL (1.20-3.40); #Monocytes 1.4 thou/uL (0.11-0.59); #Neutrophils 6.3 thou/uL (1.40-6.50); %Basophils 0.4 % (0.0-1.0); %Lymphocytes 21.4 % (21.0-51.0); %Monocytes 13.6 % (0.0-10.0); %Neutrophils 63.5 % (42.0-75.0); Hemoglobin 8.1 g/dL (12.0-16.0); Mean Corpuscular HGB CONC 33.2 g/dL (32.0-36.0); Mean Corpuscular Hemoglobin 29.4 pg (27.0-31.0); Mean Corpuscular Volume 88.6 fl (78.0-98.0); Mean Platelet Volume 9.3 fL (7.4-10.4); Platelet Count 627 10x3/uL (130-400); RBC Distribution Width 16.4 % (11.5-14.5); Red Blood Cell (RBC) Count 2.76 mill/uL (4.20-5.40)
[2022-07-08] MEDS: Heparin 5,000 UNITS/ML VIAL SC SCH ×3 (06:31→21:59)
[2022-07-08] MEDS: Pantoprazole 40 MG VIAL IVP SCH (08:26)
[2022-07-08] MEDS: Albuterol 200 PUFF (6.7GM INHALER) INH SCH ×3 (18:27→23:49)
[2022-07-09] MEDS: Dextrose 5% in Water 1,000 ML IV SCH ×4 (01:16→18:21)
[2022-07-09 05:11] LABS: #Eosinphils 0.4 thou/uL (0.0-0.7); #Lymphocytes 1.9 thou/uL (1.20-3.40); #Monocytes 1.4 thou/uL (0.11-0.59); #Neutrophils 7.7 thou/uL (1.40-6.50); %Basophils 0.2 % (0.0-1.0); %Eosinophils 3.2 % (0.0-10.0); %Lymphocytes 16.6 % (21.0-51.0); %Monocytes 12.2 % (0.0-10.0); %Neutrophils 67.9 % (42.0-75.0); Hemoglobin 8.9 g/dL (12.0-16.0); Mean Corpuscular Hemoglobin 28.8 pg (27.0-31.0); Mean Corpuscular Volume 89.8 fl (78.0-98.0); Mean Platelet Volume 9.3 fL (7.4-10.4); Platelet Count 694 10x3/uL (130-400); RBC Distribution Width 16.2 % (11.5-14.5); Red Blood Cell (RBC) Count 3.11 mill/uL (4.20-5.40); White Blood Cell (WBC) Count 11.3 10x3/uL (4.8-10.8)
[2022-07-09 05:23] LABS: Anion Gap 9 mmol/L (10-20); BUN (Urea Nitrogen) 9 mg/dL (9.8-20.1); Calc. Creatinine Clearance 105 mL/min (70-130); Calcium 8.2 mg/dL (7.8-10.44); Carbon Dioxide 24 mmol/L (23-31); Chloride 104 mmol/L (98-107); Estimated GFR 98; Glucose 121 mg/dL (80-115); Potassium 3.3 mmol/L (3.5-5.1); Sodium 134 mmol/L (136-145)
[2022-07-09] MEDS: Heparin 5,000 UNITS/ML VIAL SC SCH ×3 (05:51→21:24)
[2022-07-09] MEDS: Albuterol 200 PUFF (6.7GM INHALER) INH SCH ×3 (07:37→19:13)
[2022-07-09] MEDS ORDERED: Potassium Bicarbonate/Cit Ac 20 MEQ TAB PER TUBE SCH (08:00)
[2022-07-09] MEDS: Ketorolac Tromethamine 30 MG/ML VIAL IVP PRN ×2 (08:55→17:00)
[2022-07-09] MEDS ORDERED: HYDROcodone/Acetaminophen 7.5/325 mg Tablet PO PRN (10:44)
[2022-07-09 12:53] LABS: Potassium 3.1 mmol/L (3.5-5.1)
[2022-07-09 13:36] VITALS: BMI 28.5
[2022-07-09] MEDS ORDERED: Haemoph B Poly Conj-Tet Tox/PF 10 MCG/0.5 ML VIAL IM ONE (14:15)
[2022-07-09] MEDS ORDERED: Mening Vac A,C,Y,W-135 Dip/PF (MENVEO) IM ONE ×2 (17:15→17:45)
[2022-07-09] MEDS: hydrALAZINE 20 MG/ML VIAL SLOW IVP PRN (17:21)
[2022-07-09] MEDS ORDERED: Potassium Chloride 20 MEQ TAB PO SCH (21:00)
[2022-07-09] MEDS: Morphine 4 MG/ML VIAL SLOW IVP PRN (21:23)
[2022-07-10] MEDS: Ketorolac Tromethamine 30 MG/ML VIAL IVP PRN ×2 (03:15→21:09)
[2022-07-10] MEDS: Morphine 4 MG/ML VIAL SLOW IVP PRN ×2 (03:15→09:04)
[2022-07-10 05:53] LABS: Anion Gap 8 mmol/L (10-20); BUN (Urea Nitrogen) 4 mg/dL (9.8-20.1); Calc. Creatinine Clearance 114 mL/min (70-130); Calcium 8.5 mg/dL (7.8-10.44); Carbon Dioxide 25 mmol/L (23-31); Chloride 105 mmol/L (98-107); Estimated GFR 100; Glucose 123 mg/dL (80-115); Potassium 3.2 mmol/L (3.5-5.1); Sodium 135 mmol/L (136-145)
[2022-07-10 05:59] LABS: Mean Corpuscular HGB CONC 31.8 g/dL (32.0-36.0); Mean Corpuscular Hemoglobin 28.3 pg (27.0-31.0); Mean Corpuscular Volume 88.9 fl (78.0-98.0); Mean Platelet Volume 9.7 fL (7.4-10.4); Platelet Count 743 10x3/uL (130-400); RBC Distribution Width 16.7 % (11.5-14.5); Red Blood Cell (RBC) Count 3.52 mill/uL (4.20-5.40); White Blood Cell (WBC) Count 13.4 10x3/uL (4.8-10.8)
[2022-07-10 06:39] LABS: Eosinophils 3 % (0-10); Lymphocytes 15 % (21-51); MDiff Complete? YES; Monocytes 16 % (0-10); Neutrophil 66 % (42-75); Platelet Morphology Comment Appears Increased; Polychromasia SLIGHT = 2-3 cells (100X) (0-2/hpf)
[2022-07-10] MEDS: Heparin 5,000 UNITS/ML VIAL SC SCH ×3 (06:39→21:10)
[2022-07-10] MEDS: Albuterol 200 PUFF (6.7GM INHALER) INH SCH ×3 (07:21→13:08)
[2022-07-10] MEDS ORDERED: Potassium Chloride 20 MEQ TAB PO SCH (08:00)
[2022-07-10] MEDS: Dextrose 5% in Water 1,000 ML IV SCH (13:03)
[2022-07-11] MEDS: Morphine 4 MG/ML VIAL SLOW IVP PRN ×2 (01:17→19:59)
[2022-07-11] MEDS: hydrALAZINE 20 MG/ML VIAL SLOW IVP PRN (03:19)
[2022-07-11] MEDS: Dextrose 5% in Water 1,000 ML IV SCH ×3 (03:20→18:46)
[2022-07-11] MEDS: Albuterol 200 PUFF (6.7GM INHALER) INH SCH ×5 (06:03→18:31)
[2022-07-11] MEDS: Ketorolac Tromethamine 30 MG/ML VIAL IVP PRN ×2 (06:13→14:09)
[2022-07-11 06:31] LABS: #Eosinphils 0.5 thou/uL (0.0-0.7); #Lymphocytes 2.1 thou/uL (1.20-3.40); #Monocytes 1.4 thou/uL (0.11-0.59); #Neutrophils 9.2 thou/uL (1.40-6.50); %Basophils 0.3 % (0.0-1.0); %Eosinophils 3.5 % (0.0-10.0); %Lymphocytes 15.9 % (21.0-51.0); %Monocytes 10.6 % (0.0-10.0); %Neutrophils 69.7 % (42.0-75.0); Hemoglobin 10.3 g/dL (12.0-16.0); Mean Corpuscular HGB CONC 30.9 g/dL (32.0-36.0); Mean Corpuscular Volume 90.3 fl (78.0-98.0); Mean Platelet Volume 9.5 fL (7.4-10.4); Platelet Count 790 10x3/uL (130-400); RBC Distribution Width 17.6 % (11.5-14.5); Red Blood Cell (RBC) Count 3.67 mill/uL (4.20-5.40); White Blood Cell (WBC) Count 13.2 10x3/uL (4.8-10.8)
[2022-07-11 06:50] LABS: Anion Gap 12 mmol/L (10-20); BUN (Urea Nitrogen) 4 mg/dL (9.8-20.1); Calc. Creatinine Clearance 105 mL/min (70-130); Calcium 8.8 mg/dL (7.8-10.44); Carbon Dioxide 23 mmol/L (23-31); Chloride 104 mmol/L (98-107); Estimated GFR 98; Glucose 113 mg/dL (80-115); Potassium 3.5 mmol/L (3.5-5.1); Sodium 135 mmol/L (136-145)
[2022-07-11] MEDS ORDERED: Potassium Chloride 20 MEQ TAB PO SCH (08:00)
[2022-07-11] MEDS: Heparin 5,000 UNITS/ML VIAL SC SCH ×3 (08:01→21:32)
[2022-07-12] MEDS: Morphine 4 MG/ML VIAL SLOW IVP PRN ×3 (02:03→23:50)
[2022-07-12] MEDS: Dextrose 5% in Water 1,000 ML IV SCH ×2 (02:09→13:53)
[2022-07-12] MEDS: Heparin 5,000 UNITS/ML VIAL SC SCH ×3 (05:39→21:15)
[2022-07-12 06:46] LABS: #Basophils 0.1 thou/uL (0.0-0.2); #Eosinphils 0.5 thou/uL (0.0-0.7); #Lymphocytes 2.4 thou/uL (1.20-3.40); #Monocytes 1.5 thou/uL (0.11-0.59); #Neutrophils 6.5 thou/uL (1.40-6.50); %Basophils 0.5 % (0.0-1.0); %Eosinophils 4.9 % (0.0-10.0); %Lymphocytes 22.1 % (21.0-51.0); %Monocytes 13.6 % (0.0-10.0); %Neutrophils 58.9 % (42.0-75.0); Hemoglobin 9.6 g/dL (12.0-16.0); Mean Corpuscular HGB CONC 31.3 g/dL (32.0-36.0); Mean Corpuscular Hemoglobin 28.2 pg (27.0-31.0); Mean Platelet Volume 9.4 fL (7.4-10.4); Platelet Count 733 10x3/uL (130-400); RBC Distribution Width 17.2 % (11.5-14.5); Red Blood Cell (RBC) Count 3.39 mill/uL (4.20-5.40)
[2022-07-12 07:02] LABS: Anion Gap 12 mmol/L (10-20); BUN (Urea Nitrogen) Less than 4 mg/dL (9.8-20.1); Calc. Creatinine Clearance 110 mL/min (70-130); Carbon Dioxide 23 mmol/L (23-31); Chloride 103 mmol/L (98-107); Potassium 3.7 mmol/L (3.5-5.1); Sodium 134 mmol/L (136-145)
[2022-07-12 07:03] LABS: Calcium 8.4 mg/dL (7.8-10.44); Estimated GFR 99; Glucose 118 mg/dL (80-115)
[2022-07-12] MEDS: Albuterol 200 PUFF (6.7GM INHALER) INH SCH ×4 (07:03→19:20)
[2022-07-12] MEDS: hydrALAZINE 20 MG/ML VIAL SLOW IVP PRN (08:47)
[2022-07-13] MEDS: Dextrose 5% in Water 1,000 ML IV SCH ×3 (02:52→17:00)
[2022-07-13] MEDS: Heparin 5,000 UNITS/ML VIAL SC SCH ×3 (05:55→20:46)
[2022-07-13] MEDS: Morphine 4 MG/ML VIAL SLOW IVP PRN ×2 (06:03→20:46)
[2022-07-13 06:05] LABS: #Basophils 0.1 thou/uL (0.0-0.2); #Eosinphils 0.4 thou/uL (0.0-0.7); #Lymphocytes 2.6 thou/uL (1.20-3.40); #Monocytes 1.7 thou/uL (0.11-0.59); #Neutrophils 7.4 thou/uL (1.40-6.50); %Basophils 0.6 % (0.0-1.0); %Eosinophils 3.6 % (0.0-10.0); %Lymphocytes 21.5 % (21.0-51.0); %Monocytes 13.9 % (0.0-10.0); %Neutrophils 60.4 % (42.0-75.0); Hemoglobin 9.9 g/dL (12.0-16.0); Mean Corpuscular Hemoglobin 28.7 pg (27.0-31.0); Mean Corpuscular Volume 89.6 fl (78.0-98.0); Mean Platelet Volume 9.3 fL (7.4-10.4); Platelet Count 685 10x3/uL (130-400); RBC Distribution Width 17.1 % (11.5-14.5); Red Blood Cell (RBC) Count 3.45 mill/uL (4.20-5.40); White Blood Cell (WBC) Count 12.3 10x3/uL (4.8-10.8)
[2022-07-13 06:30] LABS: Anion Gap 12 mmol/L (10-20); BUN (Urea Nitrogen) Less than 4 mg/dL (9.8-20.1); Calc. Creatinine Clearance 101 mL/min (70-130); Calcium 8.8 mg/dL (7.8-10.44); Carbon Dioxide 25 mmol/L (23-31); Chloride 101 mmol/L (98-107); Estimated GFR 97; Glucose 114 mg/dL (80-115); Potassium 3.8 mmol/L (3.5-5.1); Sodium 134 mmol/L (136-145)
[2022-07-13] MEDS: Albuterol 200 PUFF (6.7GM INHALER) INH SCH ×4 (08:24→19:00)
[2022-07-13] MEDS: hydrALAZINE 20 MG/ML VIAL SLOW IVP PRN (13:36)
[2022-07-14] MEDS: Albuterol 200 PUFF (6.7GM INHALER) INH SCH ×4 (01:55→19:56)
[2022-07-14] MEDS: Dextrose 5% in Water 1,000 ML IV SCH (02:32)
[2022-07-14] MEDS: Morphine 4 MG/ML VIAL SLOW IVP PRN (02:32)
[2022-07-14] MEDS: Heparin 5,000 UNITS/ML VIAL SC SCH ×3 (05:16→20:53)
[2022-07-14 07:21] LABS: Hemoglobin 9.9 g/dL (12.0-16.0); Mean Corpuscular HGB CONC 31.4 g/dL (32.0-36.0); Mean Corpuscular Hemoglobin 28.1 pg (27.0-31.0); Mean Corpuscular Volume 89.7 fl (78.0-98.0); Mean Platelet Volume 9.1 fL (7.4-10.4); Platelet Count 706 10x3/uL (130-400); RBC Distribution Width 16.9 % (11.5-14.5); White Blood Cell (WBC) Count 11.6 10x3/uL (4.8-10.8)
[2022-07-14 07:35] LABS: Anion Gap 10 mmol/L (10-20); BUN (Urea Nitrogen) Less than 4 mg/dL (9.8-20.1); Calc. Creatinine Clearance 105 mL/min (70-130); Calcium 8.6 mg/dL (7.8-10.44); Carbon Dioxide 25 mmol/L (23-31); Chloride 100 mmol/L (98-107); Estimated GFR 98; Glucose 122 mg/dL (80-115); Potassium 3.4 mmol/L (3.5-5.1); Sodium 132 mmol/L (136-145)
[2022-07-14 07:39] LABS: #Basophils 0.1 thou/uL (0.0-0.2); #Eosinphils 0.5 thou/uL (0.0-0.7); #Lymphocytes 2.7 thou/uL (1.20-3.40); #Monocytes 1.8 thou/uL (0.11-0.59); #Neutrophils 6.9 thou/uL (1.40-6.50); %Basophils 0.7 % (0.0-1.0); %Eosinophils 4.5 % (0.0-10.0); %Lymphocytes 22.3 % (21.0-51.0); %Monocytes 14.9 % (0.0-10.0); %Neutrophils 57.6 % (42.0-75.0)
[2022-07-14] MEDS ORDERED: Potassium Chloride 20 MEQ TAB PO SCH (08:15)
[2022-07-14] MEDS: traZODone HCl 50 MG TAB PO SCH (20:53)
[2022-07-15] MEDS: Albuterol 200 PUFF (6.7GM INHALER) INH SCH ×4 (03:10→19:03)
[2022-07-15] MEDS: Heparin 5,000 UNITS/ML VIAL SC SCH ×3 (05:51→21:26)
[2022-07-15] MEDS: Levothyroxine Sodium 75 MCG TAB PO SCH (05:51)
[2022-07-15 06:23] LABS: #Basophils 0.1 thou/uL (0.0-0.2); #Eosinphils 0.4 thou/uL (0.0-0.7); #Lymphocytes 2.8 thou/uL (1.20-3.40); #Monocytes 1.4 thou/uL (0.11-0.59); #Neutrophils 6.6 thou/uL (1.40-6.50); %Basophils 0.5 % (0.0-1.0); %Eosinophils 3.2 % (0.0-10.0); %Monocytes 12.7 % (0.0-10.0); %Neutrophils 58.6 % (42.0-75.0); Mean Corpuscular HGB CONC 32.8 g/dL (32.0-36.0); Mean Corpuscular Hemoglobin 29.5 pg (27.0-31.0); Mean Corpuscular Volume 89.8 fl (78.0-98.0); Platelet Count 616 10x3/uL (130-400); RBC Distribution Width 17.1 % (11.5-14.5); Red Blood Cell (RBC) Count 3.37 mill/uL (4.20-5.40); White Blood Cell (WBC) Count 11.2 10x3/uL (4.8-10.8)
[2022-07-15 06:49] LABS: Anion Gap 13 mmol/L (10-20); BUN (Urea Nitrogen) 4 mg/dL (9.8-20.1); Calc. Creatinine Clearance 101 mL/min (70-130); Carbon Dioxide 23 mmol/L (23-31); Chloride 102 mmol/L (98-107); Estimated GFR 97; Glucose 109 mg/dL (80-115); Potassium 3.6 mmol/L (3.5-5.1); Sodium 134 mmol/L (136-145)
[2022-07-15] MEDS ORDERED: Hydrocodone-Acetamin 15 ML UDCUP PO PRN (12:29)
[2022-07-15] MEDS: traZODone HCl 50 MG TAB PO SCH (21:27)
[2022-07-15] MEDS: Morphine 4 MG/ML VIAL SLOW IVP PRN (23:15)
[2022-07-16] MEDS: Albuterol 200 PUFF (6.7GM INHALER) INH SCH ×2 (00:10→07:11)
[2022-07-16] MEDS: Heparin 5,000 UNITS/ML VIAL SC SCH (05:40)
[2022-07-16] MEDS: Levothyroxine Sodium 75 MCG TAB PO SCH (05:41)
[2022-07-16 05:43] LABS: #Basophils 0.1 thou/uL (0.0-0.2); #Eosinphils 0.5 thou/uL (0.0-0.7); #Lymphocytes 3.7 thou/uL (1.20-3.40); #Monocytes 1.7 thou/uL (0.11-0.59); #Neutrophils 8.1 thou/uL (1.40-6.50); %Basophils 0.8 % (0.0-1.0); %Eosinophils 3.7 % (0.0-10.0); %Lymphocytes 26.6 % (21.0-51.0); %Monocytes 11.8 % (0.0-10.0); %Neutrophils 57.1 % (42.0-75.0); Hemoglobin 10.4 g/dL (12.0-16.0); Mean Corpuscular HGB CONC 32.2 g/dL (32.0-36.0); Mean Corpuscular Hemoglobin 28.8 pg (27.0-31.0); Mean Corpuscular Volume 89.5 fl (78.0-98.0); Mean Platelet Volume 8.9 fL (7.4-10.4); Platelet Count 591 10x3/uL (130-400); RBC Distribution Width 16.9 % (11.5-14.5); White Blood Cell (WBC) Count 14.1 10x3/uL (4.8-10.8)
[2022-07-16] MEDS: Morphine 4 MG/ML VIAL SLOW IVP PRN (05:45)
[2022-07-16 06:02] LABS: Anion Gap 14 mmol/L (10-20); BUN (Urea Nitrogen) 7 mg/dL (9.8-20.1); Calc. Creatinine Clearance 98 mL/min (70-130); Calcium 9.1 mg/dL (7.8-10.44); Carbon Dioxide 22 mmol/L (23-31); Chloride 104 mmol/L (98-107); Estimated GFR 96; Glucose 94 mg/dL (80-115); Potassium 3.8 mmol/L (3.5-5.1); Sodium 136 mmol/L (136-145)
[2022-07-16 08:03] VITALS: TEMP 98.1
[2022-07-16 12:05] VITALS: BP 162/83
== END 2022-07-16 12:22 | DRG 853 ==
LOC: ERS 13:12 → SDC 15:30 → CCU 18:15 → SURG B 07-08 11:32
PROVIDERS: ADMIT Surgery; ATTEND Surgery
PROC: 07BP0ZZ Excision of Spleen, Open Approach (ICD-10-PCS; principal; 2022-06-24)
PROC: 0D1B0Z4 Bypass Ileum to Cutaneous, Open Approach (ICD-10-PCS; 2022-06-24)
PROC: 0DTL0ZZ Resection of Transverse Colon, Open Approach (ICD-10-PCS; 2022-06-24)
PROC: 5A1955Z Respiratory Ventilation, Greater than 96 Consecutive Hours (ICD-10-PCS; 2022-06-24)
PROC: B548ZZA Ultrasonography of Superior Vena Cava, Guidance (ICD-10-PCS; 2022-06-24)
PROC: 02HV33Z Insertion of Infusion Device into Superior Vena Cava, Percutaneous Approach (ICD-10-PCS; 2022-06-24)
PROC: 4A133R1 Monitoring of Arterial Saturation, Peripheral, Percutaneous Approach (ICD-10-PCS; 2022-06-24)
PROC: 3E043XZ Introduction of Vasopressor into Central Vein, Percutaneous Approach (ICD-10-PCS; 2022-06-24)
PROC: 3E04329 Introduction of Other Anti-infective into Central Vein, Percutaneous Approach (ICD-10-PCS; 2022-06-24)
PROC: 30233N1 Transfusion of Nonautologous Red Blood Cells into Peripheral Vein, Percutaneous Approach (ICD-10-PCS; 2022-06-24)
PROC: 0BCB8ZZ Extirpation of Matter from Left Lower Lobe Bronchus, Via Natural or Artificial Opening Endoscopic (ICD-10-PCS; 2022-07-02)
DX: A41.4 Sepsis due to anaerobes (principal); J80 Acute respiratory distress syndrome; J95.821 Acute postprocedural respiratory failure; K35.33 Acute appendicitis with perforation, localized peritonitis, and gangrene, with abscess; R65.21 Severe sepsis with septic shock; K59.31 Toxic megacolon; E87.1 Hypo-osmolality and hyponatremia; D62 Acute posthemorrhagic anemia; J90 Pleural effusion, not elsewhere classified; E87.20 Acidosis, unspecified; T17.590A Other foreign object in bronchus causing asphyxiation, initial encounter; E03.9 Hypothyroidism, unspecified; Z20.822 Contact with and (suspected) exposure to COVID-19; F17.210 Nicotine dependence, cigarettes, uncomplicated; E87.6 Hypokalemia; E83.42 Hypomagnesemia; E83.39 Other disorders of phosphorus metabolism; E88.09 Other disorders of plasma-protein metabolism, not elsewhere classified; E16.2 Hypoglycemia, unspecified; Z88.1 Allergy status to other antibiotic agents; Z79.890 Hormone replacement therapy; Z79.899 Other long term (current) drug therapy; Z90.710 Acquired absence of both cervix and uterus; Z90.49 Acquired absence of other specified parts of digestive tract
CPT/HCPCS: 36415; 36416; 36430; 36600; 71045; 74018; 80048; 80053; 82040; 82533; 82805; 83605; 83690; 83735; 84100; 84439; 84443; 84484; 84703; 85025; 85060; 86850; 86900; 86901; 87040; 87070; 87205; 87811; 88305; 88307; 90471; 90648; 90662; 90714; 90734; 93005; 94003; 94640; 96365; 96368; 96375; 97139; 90677; C1713; C1751; C1889; C9113; G0008; G0009; J0360; J0610; J0611; J1120; J1642; J1644; J1720; J1815; J1885; J1940; J2185; J2248; J2250; J2270; J2370; J2405; J2543; J2920; J3010; J3475; J3480; J3490; J7042; J7050; J7070; J7120; J7611; J7620; P9016; P9045; P9047; S0028; U0002